=== PATIENT | female | born 1950 | race Caucasian/White ===

== ENCOUNTER 2017-02-12 01:40 | Emergency (ER) | payer MEDICARE ==
[2017-02-12 02:58] LABS: HEMOGLOBIN 13.6 gm/dl (12.3-15.3); RED BLOOD COUNT 4.65 M/UL (4.00-5.10); WHITE BLOOD COUNT 8.7 K/UL (4.5-11.0)
[2017-02-12 03:17] LABS: BUN/CREATININE RATIO 23 (0-10)
== END 2017-02-12 06:30 | disposition home or self-care (01) ==
LOC: ER1 01:40
PROVIDERS: Physician Assistant
DX: I10 Essential (primary) hypertension (principal); R07.89 Other chest pain; R25.1 Tremor, unspecified; Z88.0 Allergy status to penicillin
CPT/HCPCS: 36415; 71010; 80053; 81001; 82550; 82553; 83874; 84439; 84443; 84484; 85025; 87086; 93005; 99285